=== PATIENT | female | born 1950 | race Caucasian/White ===

== ENCOUNTER 2018-10-30 12:44 | Day surgery (SDC) | payer MEDICARE ==
[~2018-10-30] VITALS: Ht 152.4 cm; Wt 77.4 kg
[2018-10-30] MEDS ORDERED: FISH OIL 1,0001 EAC1 PO (13:27)
[2018-10-30] MEDS ORDERED: VITAMIN D35000 UNIT PO (13:28)
[2018-10-30] MEDS ORDERED: ALPR.5 PO (13:28)
[2018-10-30] MEDS ORDERED: KRILL OIL500 MG PO (13:28)
--- NOTE | 2018-10-30 13:30 | NUR ---
10/30/18 1330 Ramila Rowley 1 IV ATTEMPT RIGHT HAND. VEIN ROLLED AND BLEW. BY VILMA. SUCCESSFUL IV PLACED IN RIGHT AC BY VILMA.
--- NOTE | 2018-10-30 15:01 | NUR ---
10/30/18 1501 Ramila Rowley LATE ENTRY: PT ECG TRACING STARTED SHOWING ARTIFACT. PT WOKE UP WHILE REPOSITIONING LEADS. PER MD OK TO GIVE ANOTHER 40 MG IV PROPOFOL.
== END 2018-10-30 15:44 | disposition home or self-care (01) ==
LOC: ORSCSDS 12:44
PROVIDERS: Surgery
PROC: 0DBH8ZX Excision of Cecum, Via Natural or Artificial Opening Endoscopic, Diagnostic (ICD-10-PCS; principal; 2018-10-30 14:00)
PROC: 0DBN8ZX Excision of Sigmoid Colon, Via Natural or Artificial Opening Endoscopic, Diagnostic (ICD-10-PCS; principal; 2018-10-30 14:00)
PROC: 0DBK8ZX Excision of Ascending Colon, Via Natural or Artificial Opening Endoscopic, Diagnostic (ICD-10-PCS; principal; 2018-10-30 14:00)
PROC: 0DBM8ZX Excision of Descending Colon, Via Natural or Artificial Opening Endoscopic, Diagnostic (ICD-10-PCS; principal; 2018-10-30 14:00)
DX: Z12.11 Encounter for screening for malignant neoplasm of colon (principal); D12.2 Benign neoplasm of ascending colon; D12.3 Benign neoplasm of transverse colon; K63.5 Polyp of colon; E11.9 Type 2 diabetes mellitus without complications; I10 Essential (primary) hypertension; E78.5 Hyperlipidemia, unspecified; Z79.899 Other long term (current) drug therapy
CPT/HCPCS: 82947; 88305; J7120

== ENCOUNTER → 2022-01-18 | Outpatient (CLI) | payer MEDICARE ==
[~2022-01-18] MED LIST: ALPR.5 PO; FISH OIL 1,0001 EAC1 PO; KRILL OIL500 MG PO; VITAMIN D35000 UNIT PO
== END | disposition home or self-care (01) ==
LOC: PLD 10:59 → LAB SHORT 10:59
DX: D22.5 Melanocytic nevi of trunk (principal)
CPT/HCPCS: 88305

== ENCOUNTER 2022-07-01 23:22 | Emergency (ER) | payer MEDICARE ==
[~2022-07-01] VITALS: Ht 152.4 cm; Wt 88.5 kg
[2022-07-01 23:49] LABS: BASOPHILS ABSOLUTE AUTO 0.06 K/mm3 (0.00-0.23); BASOPHILS PERCENT AUTO 1 % (0-2); EOSINOPHILS PERCENT AUTO 1 % (0-6); Hematocrit 38.7 % (33.0-51.0); IMMATURE GRAN ABSOLUTE AUTO 0.03 K/mm3 (0.00-0.10); IMMATURE GRAN PERCENT AUTO 0 % (0-1); LYMPHOCYTES PERCENT AUTO 26 % (21-46); MONOCYTES ABSOLUTE AUTO 0.48 K/mm3 (0.16-1.47); MONOCYTES PERCENT AUTO 5 % (4-13); Mean Corpuscular HGB 29.3 pg (26.0-34.0); Mean Corpuscular HGB Conc 33.6 g/dL (31.5-36.5); Mean Corpuscular Volume 87 fL (80-100); Mean Platelet Volume 8.5 fL (9.1-12.4); NEUTROPHILS ABSOLUTE AUTO 7.17 K/mm3 (1.96-9.15); NEUTROPHILS PERCENT AUTO 67 % (41-73); Platelet Count 353 K/mm3 (150-400); RDW Standard Deviation 41.1 fL (35.1-46.3); Red Blood Cell Count 4.44 M/mm3 (3.80-5.20); White Blood Cell Count 10.64 K/mm3 (4.00-11.30)
[2022-07-02 00:07] LABS: Albumin/Globulin Ratio 1.1 (0.8-1.8); Bilirubin, Total 0.2 mg/dL (0.1-1.0); Bun/Creatinine Ratio 40.8 (12.0-20.0); Calcium, Blood 9.1 mg/dL (8.5-10.1); Creatinine, Blood 0.74 mg/dL (0.40-1.00); Globulin, Blood 3.8 g/dL (2.2-4.0); Potassium, Blood 3.6 mmol/L (3.5-5.5); Total Protein, Blood 7.8 g/dL (6.4-8.2)
[2022-07-02 00:32] LABS: Source, Urine Clean Catch
[2022-07-02 00:42] LABS: Blood, Urine 5+ (Neg); Glucose Qualitative, Urine Neg (Neg); Ketones, Urine 2+ (Neg); Leukocyte Esterase, Urine 2+ (Neg); Nitrite, Urine Neg (Neg); Protein, Urine 2+ (Neg); Urobilinogen, Urine NORM (Normal)
[2022-07-02 00:43] LABS: Appearance, Urine Hazy (Clear); Bilirubin, Urine 2+ (Neg); Color, Urine Pale Yellow (P-Yellow)
[2022-07-02 01:01] LABS: Bacteria Few /hpf; Calcium Oxalate Crystals Mod /hpf; Red Blood Cells, Urine 50-100 /hpf (0-2); Squamous Epithelial Cells Few /hpf (Few)
[2022-07-02] MEDS ORDERED: ONDA4ODT MM (05:58)
== END 2022-07-02 06:03 | disposition home or self-care (01) ==
LOC: ER 23:22
PROVIDERS: Student in an Organized Health Care Education/Training Program
DX: N20.0 Calculus of kidney (principal)
CPT/HCPCS: 36415; 74176; 80053; 81001; 85025; 87086; 96374; 99284-25; J2405

== ENCOUNTER 2023-01-05 14:38 | Emergency (ER) | payer MEDICARE ==
[~2023-01-05] VITALS: Ht 152.4 cm; Wt 88.5 kg
[~2023-01-05 14:38] MED LIST changes: +ONDA4ODT MM
[2023-01-05 16:00] VITALS: BP 165/81
== END 2023-01-05 16:13 | disposition home or self-care (01) ==
LOC: ER 14:38
DX: S39.012A Strain of muscle, fascia and tendon of lower back, initial encounter (principal); I10 Essential (primary) hypertension; W10.8XXA Fall (on) (from) other stairs and steps, initial encounter; Z79.899 Other long term (current) drug therapy
CPT/HCPCS: 72100; 99283-25

== ENCOUNTER 2025-02-12 08:05 | Emergency (ER) | payer MEDICARE ==
[~2025-02-12] VITALS: Ht 154.9 cm; Wt 88.0 kg
[2025-02-12] MEDS ORDERED: Ketorolac Tromethamine 15mg Vial IV ONE (09:00)
[2025-02-12] MEDS ORDERED: Ondansetron HCl 2 MG / ML 2ML Vial IV ONE (09:00)
[2025-02-12 09:48] LABS: BASOPHILS ABSOLUTE AUTO 0.02 K/mm3 (0.00-0.23); BASOPHILS PERCENT AUTO 0 % (0-2); EOSINOPHILS PERCENT AUTO 0 % (0-6); Hematocrit 42.1 % (33.0-51.0); Hemoglobin 13.9 g/dL (11.5-16.0); IMMATURE GRAN ABSOLUTE AUTO 0.03 K/mm3 (0.00-0.10); IMMATURE GRAN PERCENT AUTO 0 % (0-1); LYMPHOCYTES ABSOLUTE AUTO 0.24 K/mm3 (0.84-5.20); LYMPHOCYTES PERCENT AUTO 3 % (21-46); MONOCYTES ABSOLUTE AUTO 0.14 K/mm3 (0.16-1.47); MONOCYTES PERCENT AUTO 1 % (4-13); Mean Corpuscular HGB 28.6 pg (26.0-34.0); Mean Corpuscular Volume 87 fL (80-100); Mean Platelet Volume 8.5 fL (9.1-12.4); NEUTROPHILS ABSOLUTE AUTO 9.36 K/mm3 (1.96-9.15); NEUTROPHILS PERCENT AUTO 96 % (41-73); Platelet Count 308 K/mm3 (150-400); RDW Coefficient Variation 13.3 % (11.7-14.2); RDW Standard Deviation 42.3 fL (35.1-46.3); Red Blood Cell Count 4.86 M/mm3 (3.80-5.20); White Blood Cell Count 9.79 K/mm3 (4.00-11.30)
[2025-02-12 09:53] LABS: Source, Urine Clean Catch
[2025-02-12 09:55] LABS: Bilirubin, Urine Neg (Neg); Blood, Urine Neg (Neg); Color, Urine Yellow (P-Yellow); Glucose Qualitative, Urine Neg (Neg); Ketones, Urine 1+ (Neg); Leukocyte Esterase, Urine Neg (Neg); Nitrite, Urine Neg (Neg); Protein, Urine 2+ (Neg); Specific Gravity, Urine 1.025 (1.003-1.022); Urobilinogen, Urine NORM (Normal)
[2025-02-12 10:04] LABS: Appearance, Urine Hazy (Clear)
[2025-02-12 10:05] LABS: Bacteria Few /hpf; Mucus Mod (0-Heavy); Red Blood Cells, Urine Not Seen /hpf (0-2); Squamous Epithelial Cells Mod /hpf (Few); White Blood Cells, Urine 0-2 /hpf (0-5)
[2025-02-12 10:10] LABS: Albumin, Blood 3.9 g/dL (3.4-5.0); Albumin/Globulin Ratio 0.9 (0.8-1.8); Bilirubin, Total 0.4 mg/dL (0.1-1.0); Bun/Creatinine Ratio 41.2 (12.0-20.0); Calcium, Blood 9.4 mg/dL (8.5-10.1); Creatinine, Blood 0.73 mg/dL (0.40-1.00); Globulin, Blood 4.2 g/dL (2.2-4.0); Potassium, Blood 3.6 mmol/L (3.5-5.5); Total Protein, Blood 8.1 g/dL (6.4-8.2)
[2025-02-12] MEDS ORDERED: BERBERINE500 MG PO (10:46)
[2025-02-12 10:58] VITALS: BP 167/83
[2025-02-12 11:37] LABS: Influenza A, PCR NEGATIVE (NEGATIVE); Influenza B, PCR NEGATIVE (NEGATIVE); Resp Syncytial Virus, PCR NEGATIVE (NEGATIVE); SARS-Cov-2 (COVID-19) PCR, MMC NEGATIVE (NEGATIVE)
== END 2025-02-12 12:05 | disposition home or self-care (01) ==
LOC: ER 08:05
PROVIDERS: Physician Assistant
DX: R10.9 Unspecified abdominal pain (principal); Z11.52 Encounter for screening for COVID-19
CPT/HCPCS: 0241U; 74177; 80053; 81001; 85025; 93005; 93010; 96374-59; 96375; 99284-25; J1885; J2405; Q9967